=== PATIENT | male | born 1965 | race African-American/Black ===

== ENCOUNTER 2016-10-24 19:56 | Emergency (ER) | payer OTHER ==
[~2016-10-24] VITALS: Ht 175.3 cm; Wt 108.9 kg
[~2016-10-24 19:56] MED LIST: ALLERGY RELIEF10 M5 PO; ASPIR 8181 MG PO; BUPROPION HCL150 M1 PO; CETIRIZINE HCL5 MG PO; CITRATE OF MAG296 ML PO; COLACE100 MG PO; DOXYCYCLINE 10100 MG PO; FANAPT4 MG PO; FISH OIL 1,001000 M2 PO; FLONASE 0.05%50 MCG NASAL; HYDROCHLOROTHIA25 M2 PO; LOPRESSOR25 PO; NEURONTIN 300300 M1 PO; NORVASC5 MG PO; OMEGA-31000 M1 PO; OMEPRAZOLE 20 M20 M1 PO; OMEPRAZOLE20 M1 PO; SEROQUEL 25 MG25 M1 PO; SEROQUEL 50 MG50 MG PO
[2016-10-24] MEDS ORDERED: NORVASC10 MG PO (20:14)
[2016-10-24] MEDS ORDERED: FANAPT4 MG PO (20:16)
[2016-10-24] MEDS ORDERED: ALLERGY RELIEF10 M5 PO (20:16)
[2016-10-24] MEDS ORDERED: ATIVAN1 MG PO (20:17)
[2016-10-24 20:19] LABS: URINE BILIRUBIN NEGATIVE (Negative); URINE BLOOD NEGATIVE (Negative); URINE COLOR YELLOW; URINE GLUCOSE-RANDOM* NEGATIVE (Negative); URINE KETONES NEGATIVE (Negative); URINE NITRITE NEGATIVE (Negative); URINE PROTEIN (DIPSTICK) NEGATIVE (Negative); URINE UROBILINOGEN 0.2 E.U./dl (0.2-1.0)
[2016-10-24 20:20] LABS: ABSOLUTE NEUTROPHILS 4.6 thou/uL (1.4-8.2); BASOPHILS 0.2 % (0.0-2.0); EOSINOPHILS 1.6 % (0.0-3.0); HEMATOCRIT 41.5 % (42.0-52.0); HEMOGLOBIN 14.4 gm/dL (14.0-18.0); LYMPHOCYTES 11.4 % (24.0-44.0); MCH 29.4 pg (26.0-34.0); MCHC 34.6 g/dL (28.0-37.0); MCV 84.8 fL (80.0-100.0); MONOCYTES 6.9 % (1.0-8.0); PLATELET COUNT 222 thou/uL (150-400); POLYS 79.9 % (36.0-66.0); RBC 4.89 mil/uL (4.50-6.00); WBC 5.8 thou/uL (4.0-11.0)
[2016-10-24 20:21] LABS: MANUAL DIFF NO
[2016-10-24 20:27] LABS: CALCIUM 9.1 mg/dL (8.5-10.1); CREATININE 1.3 mg/dL (0.7-1.3); POTASSIUM 3.4 mmol/L (3.5-5.1)
[2016-10-24 20:32] LABS: ALBUMIN 4.1 g/dL (3.4-5.0); DIRECT BILIRUBIN 0.1 mg/dL (<0.1-0.3); TOTAL BILIRUBIN 0.6 mg/dL (<0.1-1.0); TOTAL PROTEIN 7.9 g/dL (6.4-8.2)
[2016-10-24] MEDS ORDERED: FLAGYL500 MG PO (21:54)
[2016-10-24] MEDS ORDERED: CIPRO500 MG PO (21:54)
[2016-10-24] MEDS ORDERED: NORCO 5-325 TA1 EACH PO (21:55)
[2016-10-24 22:38] VITALS: BP 127/85
== END 2016-10-24 21:58 | disposition home or self-care (01) ==
LOC: ER 19:56
PROVIDERS: Nurse Practitioner
DX: K52.9 Noninfective gastroenteritis and colitis, unspecified (principal); I10 Essential (primary) hypertension; K21.9 Gastro-esophageal reflux disease without esophagitis; F32.9 Major depressive disorder, single episode, unspecified; J45.990 Exercise induced bronchospasm; Z88.1 Allergy status to other antibiotic agents

== ENCOUNTER 2018-08-01 06:15 | Inpatient (IN) | payer OTHER ==
[~2018-08-01] VITALS: Ht 175.3 cm; Wt 108.9 kg
[2018-08-01] VITALS (7 sets, daily range): BP systolic 120–139; BP diastolic 82–93
[~2018-08-01 06:15] MED LIST changes: +ATIVAN1 MG PO; +CIPRO500 MG PO; +FLAGYL500 MG PO; +NORCO 5-325 TA1 EACH PO; +NORVASC10 MG PO
[2018-08-01] MEDS ORDERED: VALIUM5 MG PO (06:58)
[2018-08-01 07:00] LABS: ABSOLUTE NEUTROPHILS 2.3 thou/uL (1.4-8.2); BASOPHILS 0.6 % (0.0-2.0); EOSINOPHILS 4.3 % (0.0-3.0); HEMATOCRIT 39.2 % (42.0-52.0); HEMOGLOBIN 13.6 gm/dL (14.0-18.0); LYMPHOCYTES 24.8 % (24.0-44.0); MCH 29.1 pg (26.0-34.0); MCHC 34.6 g/dL (28.0-37.0); MONOCYTES 9.2 % (1.0-8.0); PLATELET COUNT 225 thou/uL (150-400); POLYS 61.1 % (36.0-66.0); RBC 4.67 mil/uL (4.50-6.00); RDW 13.7 % (10.5-14.5); WBC 3.7 thou/uL (4.0-11.0)
[2018-08-01 07:04] LABS: ANION GAP 8 mmol/L (7-16); BUN 13 mg/dL (7-18); CALCIUM 9.2 mg/dL (8.5-10.1); CHLORIDE 107 mmol/L (98-107); CO2 29 mmol/L (21-32); CREATININE 1.2 mg/dL (0.7-1.3); GLUCOSE 138 mg/dL (74-106); POTASSIUM 3.6 mmol/L (3.5-5.1); SODIUM 144 mmol/L (136-145)
[2018-08-01 07:13] LABS: ALBUMIN 3.7 g/dL (3.4-5.0); SGOT 19 U/L (15-37); SGPT 36 U/L (30-65); TOTAL BILIRUBIN 0.4 mg/dL (<0.1-1.0); TOTAL PROTEIN 7.2 g/dL (6.4-8.2); TROPONIN-I <0.06 ng/mL (<0.06)
--- NOTE | 2018-08-01 08:35 | EKG ---
[place] [address] [facility] [place] [address] ELECTROCARDIOGRAM REPORT Name: RAPHAEL FLANAGAN Nikolay [facility]: [facility] [id number] ������������������ Admission: 08/01/18 ������������������ Attend Phys: Discharge: ������������������ Date of : 69 Report #: [id number] ����������������������������������������������������������������� [id number] THIS REPORT FOR: //name// [facility] ED Test Date: 2018-08-01 Test Time: 06:21:16 Pat Name: RAPHAEL FLANAGAN Department: Room: Gender: Aircraft Ordnance Systems Mechanic: [place] : 1965 Requested By: Kaleigh Tucker Order Number: [id number] MD: Jim Figueroa Measurements Intervals [place] Rate: 89 P: 47 ND: 190 QRS: 32 QRSD: 84 T: 17 QT: 340 QTc: 414 Interpretive Statements Sinus rhythm Normal tracing Compared to ECG 09/14/2016 01:33:02 No significant changes Electronically Signed On 08-01-2018 8:35:18 CDT by Jim Figueroa [email or web address] ��������������������������������������������� <ELECTRONICALLY SIGNED> ���������������������������������������� By: Jim Figueroa MD, [facility] ��������������������������������������������� 08/01/18 0835 0621 0 Jim Figueroa MD, FACC /EPI
[2018-08-01] MEDS ORDERED: ZYRTEC10 M5 PO (10:21)
[2018-08-01] MEDS ORDERED: ASPIR 8181 MG PO (10:21)
--- NOTE | 2018-08-01 15:27 | EXE ---
[facility] [address] [place] [address] STRESS ECHOCARDIOGRAM Name: RAPHAEL FLANAGAN Room #: 357-P [facility] [place] ..#: [id number] ������������� Admission: 08/01/18 ������������� Attend Phys: Bacilio Galarza MD Discharge: ��� ������������� ��� Date of : 69 Date of Service: 08/01/18 1526 �� Report #: [id number] �������� ��������������������������������������������[id number] THIS REPORT FOR: //name// APPROVED REPORT Study performed: 08/01/2018 14:07:15 Exam: Stress Echocardiogram Indication: Chest pain Patient Location: Echo lab Stress Nurse: Nabila Cha RN Room #: 357 Status: routine Ht: 5 ft 9 in HR: 83 bpm BP: 120/86 mmHg Rhythm: NSR Medical History Medical History: HTN Allergies: No known drug allergies Cardiac Risk Factors: HTN, FHX of CAD Exercise History: Indeterminate Procedure The patient underwent an Exercise Stress Test using the Arnol Protocol. Blood pressure, heart rate, and EKG were monitored. An Echocardiogram was performed by motorsports technician in four stages in quad fashion. At peak stress, four selected images were obtained and placed side by side with resting images for comparison. Stress Test Details Stress Test: Exercise stress testing was performed using a Arnol protocol. HR Resting HR: 83 bpm Max Heart Rate (APMHR): 169 bpm Max HR Achieved: 173 bpm Target HR (85% APMHR): 143 bpm % of APMHR: 102 Recovery HR: 106 bpm HR response to stress: Normal HR response to stress BP Resting BP: 120/86 mmHg Max BP: 164/90 mmHg Recovery BP: 132/84 mmHg [facility] [address] [place] [address] STRESS ECHOCARDIOGRAM Name: PANCHITORAPHAEL A Room #: 357-P [facility]#: [id number] ������������� Admission: 08/01/18 ������������� Attend Phys: Bacilio Galarza MD Discharge: ��� ������������� ��� Date of : 69 Date of Service: 08/01/18 1526 �� Report #: [id number] �������� ��������������������������������������������[id number] BP response to stress: Normal blood pressure response to stress. ECG Resting ECG: Sinus Rhythm Stress ECG: Sinus Rhythm ST Change: Upsloping ST depression Maximum ST Deviation: 0.5 mm Arrhythmia: None Recovery ECG: Sinus Rhythm Recovery ST Change: Normal Recovery ST Deviation: 0 mm Recovery Arrhythmia: None Clinical Reason for Termination: Maximal effort Exercise duration: 8 min 31 sec Highest Stage Achieved: Stage 3: 3.4 mph at 14% grade. Exercise capacity: 10.4 METs Overall Exercise Capacity for Age: Normal Angina Score: None Stress ECG Conclusion Clinical: Non-ischemic ECG: Non-ischemic Cole Treadmill Score is 5.5 which is Low risk. Pre-Stress Echo The resting Echocardiogram showed normal left ventricular contractility with an estimated Ejection Fraction of about >55%. Post-Stress Echo The stress Echocardiogram showed normal left ventricular contractility with an estimated Ejection Fraction of about >70%. Clinical Normal augmentation of myocardial wall segments using a 17 segment model. Conclusion Clinical Response: Non-ischemic Exercise Capacity: Average Stress ECG Response: Non-ischemic Stress Echo Images: Non-ischemic The left ventricle is normal in size and wall thickness in both the rest and stress images. Normal stress echocardiogram with maximal exercise stress. [facility] [address] [place] [address] STRESS ECHOCARDIOGRAM Name: RAPHAEL FLANAGAN Room #: 357-P [facility] [place] [facility].#: [id number] ������������� Admission: 08/01/18 ������������� Attend Phys: Bacilio Galarza MD Discharge: ��� ������������� ��� Date of : 69 Date of Service: 08/01/18 1526 �� Report #: [id number] �������� ��������������������������������������������[id number] No prior study available for comparison. Other Information Study Quality: Adequate <Conclusion> The left ventricle is normal in size and wall thickness in both the rest and stress images. Normal stress echocardiogram with maximal exercise stress. ��������������������������������������������� <ELECTRONICALLY SIGNED> ���������������������������������������� By: Jim Figueroa MD, FACC ��������������������������������������������� 08/01/18 1526 1526 25 Jim Figueroa MD, FACC /INF
[2018-08-01] MEDS ORDERED: SENNA-TIME S T1 EACH PO (17:19)
[2018-08-01] MEDS ORDERED: MIRALAX17 GM PO (17:19)
--- NOTE | 2018-08-01 18:28 | NUR ---
Assumed care of Pt on arrival to unit at approx 1100. pt asymptomatic. stress test unrermarkable. troponoin negative. ekg normal. ok to dc per cardiology . waiting for for transport. pt progressed toward poc goals.
== END 2018-08-01 18:48 | disposition home or self-care (01) | DRG 392 ==
LOC: ER 06:15 → EROBS 09:46 → 3W 10:00
PROVIDERS: Student in an Organized Health Care Education/Training Program; ADMIT Hospitalist
DX: K21.9 Gastro-esophageal reflux disease without esophagitis (principal); N32.0 Bladder-neck obstruction; K56.41 Fecal impaction; I10 Essential (primary) hypertension; F41.9 Anxiety disorder, unspecified; F32.9 Major depressive disorder, single episode, unspecified; J45.909 Unspecified asthma, uncomplicated; Z79.82 Long term (current) use of aspirin; Z79.899 Other long term (current) drug therapy; Z88.8 Allergy status to other drugs, medicaments and biological substances; Z82.49 Family history of ischemic heart disease and other diseases of the circulatory system
CPT/HCPCS: 10080

== ENCOUNTER 2019-03-29 20:52 | Emergency (ER) | payer OTHER ==
[~2019-03-29] VITALS: Ht 175.3 cm; Wt 106.6 kg
[~2019-03-29 20:52] MED LIST changes: +MIRALAX17 GM PO; +SENNA-TIME S T1 EACH PO; +VALIUM5 MG PO; +ZYRTEC10 M5 PO
[2019-03-29] MEDS ORDERED: LINZESS145 MCG PO (21:15)
[2019-03-29 21:16] LABS: ABSOLUTE NEUTROPHILS 3.2 thou/uL (1.4-8.2); BASOPHILS 0.6 % (0.0-2.0); EOSINOPHILS 2.7 % (0.0-3.0); HEMATOCRIT 41.7 % (42.0-52.0); HEMOGLOBIN 14.1 gm/dL (14.0-18.0); LYMPHOCYTES 25.5 % (24.0-44.0); MCH 28.9 pg (26.0-34.0); MCHC 33.9 g/dL (28.0-37.0); MCV 85.2 fL (80.0-100.0); MONOCYTES 7.1 % (1.0-8.0); PLATELET COUNT 262 thou/uL (150-400); POLYS 64.1 % (36.0-66.0); RBC 4.89 mil/uL (4.50-6.00); RDW 13.2 % (10.5-14.5)
[2019-03-29 21:24] LABS: ANION GAP 10 mmol/L (7-16); BUN 12 mg/dL (7-18); CALCIUM 9.3 mg/dL (8.5-10.1); CHLORIDE 101 mmol/L (98-107); CO2 27 mmol/L (21-32); CREATININE 1.4 mg/dL (0.7-1.3); GLUCOSE 178 mg/dL (74-106); POTASSIUM 3.5 mmol/L (3.5-5.1); SODIUM 138 mmol/L (136-145)
[2019-03-29 21:34] LABS: ALBUMIN 3.8 g/dL (3.4-5.0); LIPASE 122 U/L (73-393); SGOT 14 U/L (15-37); SGPT 20 U/L (30-65); TOTAL BILIRUBIN 0.5 mg/dL (<0.1-1.0); TOTAL PROTEIN 7.5 g/dL (6.4-8.2); TROPONIN-I <0.06 ng/mL (<0.06)
[2019-03-29 23:58] VITALS: BP 113/80
--- NOTE | 2019-03-30 08:05 | EKG ---
[address] [place] [address] ELECTROCARDIOGRAM REPORT Name: RAPHAEL FLANAGAN Nikolay [id number] Admission: 03/29/19 Attend Phys: Discharge: 03/30/19 Date of : 69 Report #: [id number] THIS REPORT FOR: //name// [facility] ED Test Date: 2019-03-29 Test Time: 20:57:10 Pat Name: RAPHAEL FLANAGAN Department: Room: Gender: Scale Technician: Nabil GRANADO : 1965 Requested By: Julienne Fowler Order Number: [id number] MD: Jim Figueroa Measurements Intervals [place] Rate: 87 P: 40 [place]: 178 QRS: 21 QRSD: 82 T: 8 QT: 355 QTc: 427 Interpretive Statements Sinus rhythm Normal tracing Compared to ECG 08/01/2018 06:21:16 No significant changes Electronically Signed On 03-30-2019 8:05:41 WRAPPING MACHINE OPERATOR by Jim Figueroa [email or web address] <ELECTRONICALLY SIGNED> By: Jim Figueroa MD, [facility] 03/30/19804 56 56 Jim Figueroa MD, FACC /EPI
== END 2019-03-30 00:01 | disposition home or self-care (01) ==
LOC: ER 20:52
PROVIDERS: Nurse Practitioner Family
DX: M25.512 Pain in left shoulder (principal); R10.13 Epigastric pain; R20.2 Paresthesia of skin; I10 Essential (primary) hypertension; K21.9 Gastro-esophageal reflux disease without esophagitis; J45.909 Unspecified asthma, uncomplicated; F32.9 Major depressive disorder, single episode, unspecified; Z88.8 Allergy status to other drugs, medicaments and biological substances